=== PATIENT | female | born 1975 | race Two or more races ===

== ENCOUNTER 2022-01-11 09:07 | Outpatient (CLI) | payer OTHER | END 2022-01-11 09:24 | disposition home or self-care (01) | LOC: RX STUDY 09:07 | PROVIDERS: ATTEND Specialist | DX: N70.11 Chronic salpingitis (principal) ==

== ENCOUNTER 2022-12-21 09:30 | Inpatient (IN) | payer OTHER ==
[~2022-12-21] VITALS: Ht 198.1 cm; Wt 81.2 kg
== END 2022-12-29 11:24 | disposition home or self-care (01) | DRG 741 ==
LOC: EDSTATUS 09:30 → ADM 09:30 → O/R 12-28 06:38 → SURG 12-28 06:38 → OB/GYN 12-28 09:30 → SURG 12-28 13:09 → OB/GYN 12-28 21:00 → SURG 12-29 11:24
PROVIDERS: ADMIT Obstetrics & Gynecology Gynecologic Oncology; ATTEND Obstetrics & Gynecology Gynecologic Oncology
PROC: 0UT74ZZ Resection of Bilateral Fallopian Tubes, Percutaneous Endoscopic Approach (ICD-10-PCS; 2022-12-28)
PROC: 07BC4ZZ Excision of Pelvis Lymphatic, Percutaneous Endoscopic Approach (ICD-10-PCS; 2022-12-28)
PROC: 0UT94ZZ Resection of Uterus, Percutaneous Endoscopic Approach (ICD-10-PCS; principal; 2022-12-28 21:00)
DX: C54.1 Malignant neoplasm of endometrium (principal); D25.2 Subserosal leiomyoma of uterus; Z20.822 Contact with and (suspected) exposure to COVID-19

== ENCOUNTER 2023-04-23 08:05 | Outpatient (CLI) | payer OTHER | END 2023-04-23 08:13 | disposition home or self-care (01) | LOC: SONOGRAMA 08:05 | PROVIDERS: ATTEND Pathology Anatomic Pathology & Clinical Pathology | DX: D34 Benign neoplasm of thyroid gland (principal); E04.9 Nontoxic goiter, unspecified ==